=== PATIENT | female | born 1970 | race Caucasian/White ===

== ENCOUNTER 2018-10-21 17:48 | Emergency (ER) | payer OTHER ==
[~2018-10-21] VITALS: Ht 162.6 cm; Wt 107.6 kg
[2018-10-21 17:54] VITALS: Ht 162.6 cm; Wt 107.6 kg
[2018-10-21] MEDS ORDERED: KETOROLAC 30 MG INJ IM STA (18:14)
[2018-10-21] MEDS ORDERED: DEXAMETHASONE 10 MG/ML 1 ML INJ IM ONE (18:30)
[2018-10-21] MEDS ORDERED: NAPR-985 PO (18:32)
[2018-10-21] MEDS ORDERED: CYCL10TA7 PO (18:32)
[2018-10-21 19:05] VITALS: BP 126/66; PULSE 83; RESP 18
--- NOTE | 2018-10-21 22:00 | ERD ---
ER Documentation Chief Complaint Chief Complaint c/o back pain radiating to right leg x1 week. denies injury HPI 48-year-old female with past medical history of type 2 diabetes presenting to the emergency department with complaints of right-sided low back pain with radiation down her right leg intermittently for the past 1 week. She denies any heavy lifting, trauma, or other injuries. Pain is rated 8/10 in severity and worse with walking. She took diclofenac prescribed by her primary care physician without significant relief. She denies any loss of bowel or bladder function, fevers, chills, or other symptoms at this time. ROS All systems reviewed and are negative except as per history of present illness. Medications Home Meds Active Scripts Naproxen* (Naprosyn*) 500 Mg Tablet, 500 MG PO BID PRN for PAIN AND/OR INFLAMMATION, #30 TAB Prov:PIPER TORRES PA-C 10/21/18 Cyclobenzaprine Hcl* (Cyclobenzaprine Hcl*) 10 Mg Tablet, 10 MG PO TID, #15 TAB Prov:PIPER TORRES PA-C 10/21/18 Allergies Allergies: Coded Allergies: Penicillins (Verified Allergy, Unknown, 10/21/18) PMhx/Soc Medical and Surgical Hx: pt denies Medical Hx, pt denies Surgical Hx Hx Alcohol Use: No Hx Substance Use: No Hx Tobacco Use: No Smoking Status: Never smoker FmHx Family History: No diabetes Physical Exam Vitals Vital Signs Date Temp Pulse Resp B/P (MAP) Pulse Ox O2 O2 Flow FiO2 Time Delivery Rate 10/21/18 98.7 83 18 126/66 96 Room Air 19:05 (86) 10/21/18 97.2 84 20 132/63 100 17:54 (86) Physical Exam Const: No acute distress Head: Atraumatic Eyes: Normal Conjunctiva ENT: Normal External Ears, Nose and Mouth. Neck: Full range of motion. No meningismus. Resp: No respiratory distress. Skin: No petechiae or rashes Back: No midline or flank tenderness. Tenderness palpation of the paraspinal muscles of the lumbar spine on the right. Positive straight leg raise test on the right. Ext: No cyanosis, or edema Neur: Awake and alert Psych: Normal Mood and Affect Results 24 hrs Laboratory Tests Test 10/21/18 18:50 POC Beta HCG, Qualitative NEGATIVE Current Medications Medications Dose Sig/Julián Start Time Status Last (Trade) Ordered Route PRN Stop Time Admin Dose Reason Admin Ketorolac 30 mg ONCE STAT 10/21/18 DC 10/21/18 Tromethamine IM 18:14 18:57 (Toradol) 10/21/18 18:15 10 mg ONCE ONCE 10/21/18 DC 10/21/18 Dexamethasone IM 18:30 18:57 (Decadron) 10/21/18 18:31 Procedures/MDM 48-year-old female presenting to the emergency department with signs and symptoms most consistent with right-sided low back pain with sciatica. Patient was administered Toradol and Decadron in the department with good response. She was improved prior to discharge. Patient's musculoskeletal symptoms have stabilized while they have been evaluated in the department and are appropriate for outpatient work up. No evidence of cauda equina, cord compression, infiltrative, or infectious etiology. No evidence of life-threatening pathology at time of discharge. Pt/family in agreement with discharge plan/diagnosis. Pt/family advised to return immediately with any new or worsening symptoms. Follow-up with primary care physician within the next 1-2 days. Patient's blood pressure was elevated (>120/80) but appears stable without evidence of hypertension emergency or urgency. The patient is to follow-up and pursue outpatient monitoring and therapy with their primary care physician within 1 week and return immediately if they have any new, worsening, or concerning symptoms. Disclaimer: Inadvertent spelling and grammatical errors are likely due to EHR/dictation software use and do not reflect on the overall quality of patient care. Also, please note that the electronic time recorded on this note does not necessarily reflect the actual time of the patient encounter. Departure Diagnosis: Primary Impression: Low back pain with sciatica Chronicity: acute Back pain laterality: right Sciatica laterality: sciatica of right side Qualified Codes: M54.41 - Lumbago with sciatica, right side Condition: Fair Patient Instructions: Back Pain W/ Sciatica Referrals: [facility] YOU HAVE RECEIVED A MEDICAL SCREENING EXAM AND THE RESULTS INDICATE THAT YOU DO NOT HAVE A CONDITION THAT REQUIRES URGENT TREATMENT IN THE EMERGENCY DEPARTMENT. FURTHER EVALUATION AND TREATMENT OF YOUR CONDITION CAN WAIT UNTIL YOU ARE SEEN IN YOUR DOCTORS OFFICE WITHIN THE NEXT 1-2 DAYS. IT IS YOUR RESPONSIBILITY TO MAKE AN APPOINTMENT FOR FOLOW-UP CARE. IF YOU HAVE A PRIMARY DOCTOR --you should call your primary doctor and schedule an appointment IF YOU DO NOT HAVE A PRIMARY DOCTOR YOU CAN CALL OUR PHYSICIAN REFERRAL HOTLINE AT IF YOU CAN NOT AFFORD TO SEE A PHYSICIAN YOU CAN CHOSE FROM THE FOLLOWING [facility] [address] [facility] [address] [facility]. [facility] [address] [facility] [address] [facility] [address] [facility]. [facility]. [address] Additional Instructions: Call your primary care doctor TOMORROW for an appointment during the next 1-2 days.See the doctor sooner or return here if your condition worsens before your appointment time. PIPER TORRES PA-C October 21, 2018 22:00
== END 2018-10-21 19:05 | disposition home or self-care (01) ==
LOC: FTE 17:48
DX: M54.41 Lumbago with sciatica, right side (principal); E11.9 Type 2 diabetes mellitus without complications
CPT/HCPCS: 81025; 96372; J1100; J1885; Z7502

== ENCOUNTER 2018-11-11 16:48 | Emergency (ER) | payer OTHER ==
[~2018-11-11] VITALS: Ht 160 cm; Wt 107.0 kg
[~2018-11-11 16:48] MED LIST: CYCL10TA7 PO; NAPR-985 PO
[2018-11-11 17:06] VITALS: BP 133/66; PULSE 69; RESP 18; Ht 160 cm; Wt 107.0 kg
[2018-11-11] MEDS ORDERED: KETOROLAC 30 MG INJ IM STA (18:33)
[2018-11-11] MEDS ORDERED: PRED20TA PO (18:35)
[2018-11-11] MEDS ORDERED: TRAM50TA2 PO (18:35)
--- NOTE | 2018-11-11 18:40 | ERD ---
ER Documentation Chief Complaint Chief Complaint BACK PAIN X2 WEEKS HPI 48-year-old female with past medical history of diabetes type 2, chronic back pain with radiculopathy who presents with complaint of lower back pain over the past 2 weeks. States symptoms typical of her back pain flares. With reported right sided to middle back pain with extension of pain and tingling down to right lower extremity. She denies recent fall or trauma. Patient states she was seen in this ED 2 weeks ago for similar symptoms, prescribed Naprosyn and Flexeril. Also seen her PMD recently as October 18 and given diclofenac. She otherwise denies red flag symptoms such as saddle anesthesia, urinary or bowel incontinence. Patient able to take multiple steps in examination room although with some discomfort. ROS All systems reviewed and are negative except as per history of present illness. Medications Home Meds Active Scripts Prednisone* (Prednisone*) 20 Mg Tab, 40 MG PO DAILY for 4 Days, TAB Prov:OH DE PAZ PA-C 11/11/18 Tramadol HCl (Tramadol HCl) 50 Mg Tablet, 50 MG PO Q6 PRN for PAIN, #20 TAB Prov:OH DE PAZ PA-C 11/11/18 Naproxen* (Naprosyn*) 500 Mg Tablet, 500 MG PO BID PRN for PAIN AND/OR INFLAMMATION, #30 TAB Prov:PIPER TORRES PA-C 10/21/18 Cyclobenzaprine Hcl* (Cyclobenzaprine Hcl*) 10 Mg Tablet, 10 MG PO TID, #15 TAB Prov:PIPER TORRES PA-C 10/21/18 Allergies Allergies: Coded Allergies: Penicillins (Verified Allergy, Unknown, 10/21/18) PMhx/Soc Medical and Surgical Hx: pt denies Medical Hx, pt denies Surgical Hx Hx Alcohol Use: No Hx Substance Use: No Hx Tobacco Use: No Smoking Status: Never smoker FmHx Family History: diabetes; No coronary disease, No other Physical Exam Vitals Vital Signs Date Temp Pulse Resp B/P (MAP) Pulse Ox O2 O2 Flow FiO2 Time Delivery Rate 11/11/18 97.9 69 18 133/66 98 17:06 (88) Physical Exam I have reviewed the triage vital signs. Const: Well nourished, well developed, appears stated age Eyes: PERRL, no conjunctival injection HENT: NCAT, Neck supple without meningismus CV: RRR, Warm, well-perfused extremities RESP: CTAB, Unlabored respiratory effort GI: soft, non-tender, non-distended, no masses MSK: No gross deformities appreciated, positive straight leg test right lower extremity Back Exam: Skin: No bruising or rash Compartments: Soft Motor: Normal flexion and extension of bilateral hip/knee/ankle/foot Sensation: Intact to light touch throughout Bones: No midline TTP Skin: Warm, dry. No rashes Neuro: grossly non focal Psych: Appropriate mood and affect. Results 24 hrs Current Medications Medications Dose Sig/Julián Start Time Status Last (Trade) Ordered Route PRN Stop Time Admin Dose Reason Admin Ketorolac 30 mg ONCE STAT 11/11/18 DC Tromethamine IM 18:33 11/11/18 (Toradol) 18:35 10 mg ONCE ONCE 11/11/18 Dexamethasone IM 19:00 11/11/18 (Decadron) 19:01 Procedures/MDM 48-year-old female with chronic lower back pain with radiculopathy who presents with typical back pain symptoms. Low suspicion for acute cord compression or cauda equina at this time, given presentation and symptoms, including epidural abscess or hematoma. Patient has no history of malignancy, active or distant history. Patient has no unexplained weight loss. No recent fevers, rigors, malaise, or recent infection. No history of IVDU or skin-popping. Patient does not have any history concerning for saddle anesthesia/perianal sensory loss or complaining of decreased rectal tone. Patient does not have urinary retention or inability to control urine from overflow. Patient has no tenderness overlying spinous process. Patient has no focal weakness on examination. Joint decision making regarding short course of steroids made with patient. She agrees to try a short 4-day course of steroids to help with her symptoms. She understands that she will have to monitor and manage her blood glucose much closer. She has follow-up with her PMD December 02 and advised to keep this appointment. Given exam and history, low suspicion for cord compression, cauda equina, epidural abscess/hematoma. Distally neurovascularly intact. Query likely musculoskeletal component. Discussed pain control,and follow up with PMD. Cautious return precautions discussed w/ full understanding ED course, Toradol, Decadron single dose DISPOSITION PLAN: We discussed follow up with the patient's primary care doctor within 24 to 48 hours. Patient counseled regarding my diagnostic impression and care plan. Prior to discharge all questions answered. Pt agrees with treatment plan and understands strict return precautions. Precautionary instructions provided including instructions to return to the ER if not improving or for any worsening or changing symptoms or concerns. Disclaimer: Inadvertent spelling and grammatical errors are likely due to EHR/dictation software use and do not reflect on the overall quality of patient care. Also, please note that the electronic time recorded on this note does not necessarily reflect the actual time of the patient encounter. Departure Diagnosis: Primary Impression: Low back pain with sciatica Condition: Stable Patient Instructions: Back Pain W/ Sciatica Referrals: [facility] YOU HAVE RECEIVED A MEDICAL SCREENING EXAM AND THE RESULTS INDICATE THAT YOU DO NOT HAVE A CONDITION THAT REQUIRES URGENT TREATMENT IN THE EMERGENCY DEPARTMENT. FURTHER EVALUATION AND TREATMENT OF YOUR CONDITION CAN WAIT UNTIL YOU ARE SEEN IN YOUR DOCTORS OFFICE WITHIN THE NEXT 1-2 DAYS. IT IS YOUR RESPONSIBILITY TO MAKE AN APPOINTMENT FOR FOLOW-UP CARE. IF YOU HAVE A PRIMARY DOCTOR --you should call your primary doctor and schedule an appointment IF YOU DO NOT HAVE A PRIMARY DOCTOR YOU CAN CALL OUR PHYSICIAN REFERRAL HOTLINE AT IF YOU CAN NOT AFFORD TO SEE A PHYSICIAN YOU CAN CHOSE FROM THE FOLLOWING [facility] [address] [facility]. [facility] [address] [facility]. [facility] [address] [facility]. [facility] [address] [facility] [facility] [address] [facility]. [facility]. [address] Additional Instructions: Call your primary care doctor TOMORROW for an appointment during the next 2-3 days.See the doctor sooner or return here if your condition worsens before your appointment time. OH DE PAZ PA-C Nov 11, 2018 18:40
[2018-11-11] MEDS ORDERED: DEXAMETHASONE 10 MG/ML 1 ML INJ IM ONE (19:00)
== END 2018-11-11 19:10 | disposition home or self-care (01) ==
LOC: FTE 16:48
DX: M54.41 Lumbago with sciatica, right side (principal); E11.9 Type 2 diabetes mellitus without complications
CPT/HCPCS: 81003; 96372; J1100; J1885; Z7502